=== PATIENT | female | born 1965 ===

== ENCOUNTER 2024-10-17 03:52 | Outpatient (CLI) | payer MEDICARE, SELFPAY ==
--- NOTE | 2024-10-17 | DI.CT_ITS ---
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 Lung Computer Aided Detection (CAD) was utilized. CONTRAST MATERIAL: Intravenous: Omnipaque 350 contrast volume:100 mL Oral: Yes COMPARISON: US US TRANSVAGINAL NON OB from 05/23/2024 FINDINGS: Examination is somewhat limited due to patient body habitus. CHEST: Tracheobronchial tree: Patent where visualized. No evidence of bronchiectasis. Pulmonary parenchyma: No consolidation or dominant measurable mass. No architectural distortion. Visualized thyroid gland: There is a 1.1 cm nodule in the inferior pole of the left lobe of the thyro id gland. Nonemergent thyroid ultrasound should be obtained for further evaluation. Mediastinum and Mirta: No dominant adenopathy or fluid collection. The esophagus is unremarkable. Pleura: No effusion or pneumothorax. Heart: The heart is not dilated. Mild coronary artery calcification is present. No pericardial effus ion. Pulmonary arteries: No pulmonary emboli are identified. Aorta: Thoracic aorta non-dilated. Atherosclerotic calcification is present. No evidence of dissecti on. Lymph nodes: No significant axillary or supraclavicular adenopathy. Tubes, Catheters, and Lines: The patient has a right chest port in place. Soft tissues: Unremarkable. Bones:Within normal limits for the patient's age. No aggressive osseous lesions are present. ABDOMEN: Liver: Normal density. There is a cyst in the right lobe of the liver. No suspicious hepatic masses are present. Portal, Superior Mesenteric, and Splenic Veins: Unremarkable. Gallbladder and Biliary Tract: No radiodense calculus or dilation. Pancreas: Normal density, no abnormal calcifications or inflammatory process. Spleen: Normal. Adrenals: No masses seen. Kidneys: Normal size, contour and axis. No radiodense stones or obstructive uropathy. No masses seen. Abdominal Aorta: Abdominal portion non-dilated. Atherosclerotic calcification is present. Bowel: There is diverticulosis in the colon but no evidence of acute diverticulitis. There is no jennifer dence of bowel wall thickening or bowel obstruction. There is no evidence of appendicitis. Peritoneal Cavity: No ascites, collection or mesenteric inflammatory response. No free air. Lymph Nodes: Within normal limits. Bones: Within normal limits for the patient's age. No aggressive osseous lesions are present. Soft Tissues: There is tubing seen in the anterior abdominal wall and entering into the abdominal cav ity which may represent a ventriculoperitoneal shunt. PELVIS: Bladder: Symmetric distention, no gross wall thickening. Reproductive Organs: Status post hysterectomy. Lymph Nodes: Within normal limits. Bones: Within normal limits. IMPRESSION: 1. No evidence of chest, abdominal or pelvic metastatic disease. 2. 1.1 cm left thyroid nodule. Nonemergent thyroid ultrasound should be obtained for further evaluat ion. 3. Status post hysterectomy. RADIATION DOSE DELIVERED: 1,799.35mGy.cm Total DLP DATA REPOSITORY: All CT scans at this facility are submitted to the National Radiology Data Registry (NRDR) Dose Index Registry (DIR) with the [employer] ([employer]). RADIATION OPTIMIZATION: All CT scans at this facility use at least one of these dose optimization te chniques: automated exposure control; mA and/or kV adjustment per patient size (includes targeted exa ms where dose is matched to clinical indication); or iterative reconstruction.
[2024-10-17] MEDS: Barium Sulfate 2% W/V-Berry Smoothie 450 ML BTL PO ×2 (08:39→08:40)
[2024-10-17] MEDS: Normal Saline - Diluent 50 ML VIAL IJ (10:39)
[2024-10-17] MEDS: Omnipaque 350 MG/ML 100 ML BTL IJ (10:40)
== END 2024-10-17 04:12 ==
LOC: DI 03:52
PROVIDERS: PCP Family Medicine; Visit Provider Obstetrics & Gynecology Gynecologic Oncology
DX: C54.1 Malignant neoplasm of endometrium (principal)
CPT/HCPCS: 36591; 74177; 71260; 82565; J3490

== ENCOUNTER 2024-10-17 04:11 | Outpatient (RCR) | payer MEDICARE, SELFPAY ==
[2024-10-17] MEDS: Normal Saline Flush 10 ML SYR IVP (08:37)
[2024-10-17 09:11] LABS: CREATININE 0.8 mg/dL (0.55-1.02)
== END 2024-11-08 23:59 | disposition home or self-care (01) ==
LOC: INF 04:11
PROVIDERS: PCP Family Medicine; Visit Provider Obstetrics & Gynecology Gynecologic Oncology
DX: C54.1 Malignant neoplasm of endometrium (principal)
CPT/HCPCS: 36591; 82565